=== PATIENT | female | born 1955 | race Caucasian/White ===

== ENCOUNTER → 2017-10-10 | Outpatient (CLI) | payer OTHER ==
[~2017-10-10] MED LIST: HYDROCHLOROTHIA25 MG PO; HYDROCODON-ACE1 EA11 PO; IOPAMIDOL 370 MG/ML 200 ML INFUS..BTL INJ ONE; KEFLEX500 MG PO; PHENERGAN25 MG/1 ML PO; PREVACID30 M1 PO; SODIUM CHLORIDE 0.9% 50ML 50 ML ONE
[2017-10-10 08:30] LABS: BLOOD UREA NITROGEN 15 mg/dL (7-26); BUN/CREATININE RATIO 18 (6-25); CREATININE, SERUM 0.85 mg/dL (0.57-1.11); EST GLOMERULAR FILTRATION RATE > 60 ML/MIN (60-)
--- NOTE | 2017-10-10 10:08 | Diagnostic Imaging Report ---
PROCEDURE: CT ABDOMEN AND PELVIS WITH CONTRAST TECHNIQUE: The abdomen and pelvis were scanned utilizing a multidetector helical scanner from the diaphragm to the lesser trochanter after the IV administration of 100 cc of Isovue 370 and the oral administration of water. Coronal and sagittal multiplanar reformations were obtained. COMPARISON: None. INDICATIONS: HERNIA FINDINGS: LOWER THORAX: 8 mm nodule in the left breast, partially visualized. Lung bases are unremarkable. No pleural or pericardial effusion.. HEPATOBILIARY: Hepatic parenchyma is diffusely hypoattenuating compatible with steatosis. No focal hepatic lesion or intrahepatic biliary ductal dilatation. Gallbladder has been removed. 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 PANCREAS: No focal masses or ductal dilatation. ADRENALS: No adrenal nodules. KIDNEYS/URETERS: No hydronephrosis, stones, or solid mass lesions. PELVIC ORGANS/BLADDER: The 2.5 cm partially exophytic subserosal fibroid projecting from the right side of the uterine body. No adnexal mass. Urinary bladder is poorly distended but otherwise unremarkable. PERITONEUM / RETROPERITONEUM: No free air or fluid. LYMPH NODES: No pelvic sidewall, retroperitoneal, or mesenteric lymphadenopathy. VESSELS: Atherosclerotic calcification of the abdominal aorta, branch vessels, and iliac arterial systems without aneurysmal dilatation. Portal vein and central superior mesenteric vein are patent. GI TRACT: The large bowel shows no evidence of distention or wall thickening. Scattered diverticula along the sigmoid colon without adjacent inflammation. The appendix is normal. Postsurgical changes of the gastroesophageal junction likely related to Wandy fundoplication. No small bowel dilatation to suggest obstruction. BONES AND SOFT TISSUES: Ventral hernia defect measures 2.9 cm transversely. The hernia sac contains omental fat with some inflammatory stranding. No bowel is noted within the hernia sac. No additional focal soft tissue abnormalities with the exception of postsurgical changes of the low anterior abdominal wall and a calcified injection granuloma in the subcutaneous tissues of the right gluteal region. No osseous destructive lesions. Well circumscribed, non-sclerotic appearing focus in the lumbar spine, likely a bone island. IMPRESSION: Midline supraumbilical ventral hernia measures 2.9 cm in transverse dimension, and contains mildly inflamed omental fat. 8mm partially visualized nodule in the left breast should be correlated mammographically. Hepatic steatosis. Atherosclerotic vascular disease. Dictated by: Dominguez Rush M.D. on 10/10/2017 at 10:16 Electronically approved by: Dominguez Rush M.D. on 10/10/2017 at 10:16
== END ==
LOC: CT 07:26
PROVIDERS: ATTEND Surgery
DX: R10.9 Unspecified abdominal pain (principal)
CPT/HCPCS: 36415; 74177; 82565; 84520; Q9967

== ENCOUNTER 2017-11-29 10:52 | Inpatient (IN) | payer SELFPAY ==
[2017-11-25 12:37] LABS: BASOPHILS # (AUTO) 0.1 (0.0-0.1); BASOPHILS % 0.6 % (0.0-1.0); EOSINOPHILS # (AUTO) 0.2 (0.0-0.4); EOSINOPHILS % 1.9 % (0.0-6.0); HEMATOCRIT 47.9 % (34.2-44.1); HEMOGLOBIN 15.9 g/dL (12.0-16.0); LYMPHOCYTES # (AUTO) 5.3 (1.0-3.2); LYMPHOCYTES % 44.8 % (18.0-39.1); MEAN CORPUSCULAR HEMOGLOBIN 28.9 pg (28-32); MEAN CORPUSCULAR HGB CONC 33.2 g/dL (31-35); MEAN CORPUSCULAR VOLUME 86.9 fL (81-99); MONOCYTES % 8.6 % (4.4-11.3); NEUTROPHILS # (AUTO) 5.1 (2.1-6.9); NEUTROPHILS % 43.4 % (38.7-80.0); PLATELET COUNT 385 x10e3/uL (140-360); RED BLOOD COUNT 5.51 x10e6/uL (3.6-5.1); RED CELL DISTRIBUTION WIDTH 14.5 % (11.7-14.4)
[2017-11-25 12:54] LABS: ANION GAP 17.4 mmol/L (8-16); BLOOD UREA NITROGEN 16 mg/dL (7-26); BUN/CREATININE RATIO 17 (6-25); CALCIUM 10.5 mg/dL (8.4-10.2); CARBON DIOXIDE 28 mmol/L (22-29); CHLORIDE 106 mmol/L (98-107); CREATININE, SERUM 0.93 mg/dL (0.57-1.11); EST GLOMERULAR FILTRATION RATE > 60 ML/MIN (60-); GLUCOSE 110 mg/dL (74-118); POTASSIUM 4.4 mmol/L (3.5-5.1); SODIUM 147 mmol/L (136-145)
--- NOTE | 2017-11-25 12:57 | Diagnostic Imaging Report ---
PROCEDURE: Frontal and lateral views of the chest. COMPARISON: 12/17/2014 INDICATIONS: PREOPERATIVE CHEST XRAY FOR HERNIA REPAIR SURGERY FINDINGS: Lines/tubes: None. Lungs: The lungs are well inflated and clear. There is no evidence of pneumonia or pulmonary edema. Pleura: There is no pleural effusion or pneumothorax. Heart and mediastinum: The heart and the mediastinum are normal. Bones: No acute bony abnormality. IMPRESSION: 1. No acute cardiopulmonary disease. Dictated by: Cleveland Lubin M.D. on 11/25/2017 at 12:56 Electronically approved by: Cleveland Lubin M.D. on 11/25/2017 at 12:56
[2017-11-25 13:31] LABS: LYMPHOCYTES % (MANUAL) 46 % (19-48); MONOCYTES % (MANUAL) 8 % (3.4-9.0); NEUTROPHILS % (MANUAL) 41 % (40-74)
[2017-11-25 13:34] LABS: HYPOCHROMASIA SLIGHT; PLATELET ESTIMATE ADEQUATE; PLATELET MORPHOLOGY COMMENT NORMAL
[2017-11-25 13:35] LABS: RBC MORPHOLOGY COMMENT ABNORMAL
[~2017-11-29] VITALS: Ht 160 cm; Wt 107.5 kg
[~2017-11-29 10:52] MED LIST changes: -IOPAMIDOL 370 MG/ML 200 ML INFUS..BTL INJ ONE; -SODIUM CHLORIDE 0.9% 50ML 50 ML ONE
--- OUTSIDE RECORDS SUMMARY | 2017-11-29 10:55 | XMS REPORT ---
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 Allergies, Adverse Reactions, Alerts This patient has no known allergies or adverse reactions. Medications This patient has no known medications. Results Test Description Test Time Test Comments Text Results Atomic Results Result Comments CHEST 2 VIEWS [place] [address] Patient Name: RORY KELLEY MR #: [id number] : 1955 Age/Sex: 62/F Req #: [id number] Adm Physician: Ordered by: SULEIMAN UP MD Report #: [id number] Location: OR Room/Bed: Procedure: [id number] DX/CHEST 2 VIEWS Exam Date: 11/25/17 Exam Time : 1220 REPORT STATUS: Signed PROCEDURE: Frontal and lateral views of the chest. COMPARISON: 12/17/2014 INDICATIONS: PREOPERATIVE CHEST XRAY FOR HERNIA REPAIR SURGERY FINDINGS: Lines/tubes: None. Lungs: The lungs are well inflated and clear. There is no evidence of pneumonia or pulmonary edema. Pleura: There is no pleural effusion or pneumothorax. Heart and mediastinum: The heart and the mediastinum are normal. Bones: No acute bony abnormality. IMPRESSION: 1. No acute cardiopulmonary disease. Dictated by: Denise Lubin M.D. on at 12:56 Electronically approved by: Denise Lubin M.D. on at 12:56 Dictated By: DENISE LUBIN MD [id number] Transcribed By: LUCY on 11/25/17 1256 COPY TO: SULEIMAN UP MD CT ABDOMEN/PELVIS W [place] [address] Patient Name: RORY KELLEY MR #: [id number] : 1955 Age/Sex: 62/F Req #: [id number] Adm Physician: Ordered by: SULEIMAN UP MD Report #: [id number] Location: CT Room/Bed: Procedure: [id number] CT/CT ABDOMEN/PELVIS W Exam Date: 10/10/17 Exam Time: 0830 REPORT STATUS: Signed PROCEDURE: CT ABDOMEN AND PELVIS WITH CONTRAST TECHNIQUE: The abdomen and pelvis were scanned utilizing a multidetector helical scanner from the diaphragm to the lesser trochanter after the IV administration of 100 cc of Isovue 370 and the oral administration of water. Coronal and sagittal multiplanar reformations were obtained. COMPARISON: None. INDICATIONS: HERNIA FINDINGS: LOWER THORAX: 8 mm nodule in the left breast, partially visualized. Lung bases are unremarkable. No pleural or pericardial effusion.. HEPATOBILIARY: Hepatic parenchyma is diffusely hypoattenuating compatible with steatosis. No focal hepatic lesion or intrahepatic biliary ductal dilatation. Gallbladder has been removed. 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 PANCREAS: No focal masses or ductal dilatation. ADRENALS: No adrenal nodules. KIDNEYS/URETERS: No hydronephrosis, stones, or solid mass lesions. PELVIC ORGANS/BLADDER: The 2.5 cm partially exophytic subserosal fibroid projecting from the right side of the uterine body. No adnexal mass. Urinary bladder is poorly distended but otherwise unremarkable. PERITONEUM / RETROPERITONEUM: No free air or fluid. LYMPH NODES: No pelvic sidewall, retroperitoneal, or mesenteric lymphadenopathy. VESSELS: Atherosclerotic calcification of the abdominal aorta, branch vessels, and iliac arterial systems without aneurysmal dilatation. Portal vein and central superior mesenteric vein are patent. GI TRACT: The large bowel shows no evidence of distention or wall thickening. Scattered diverticula along the sigmoid colon without adjacent inflammation. The appendix is normal. Postsurgical changes of the gastroesophageal junction likely related to Wandy fundoplication. No small bowel dilatation to suggest obstruction. BONES AND SOFT TISSUES: Ventral hernia defect measures 2.9 cm transversely. The hernia sac contains omental fat with some inflammatory stranding. No bowel is noted within the hernia sac. No additional focal soft tissue abnormalities with the exception of postsurgical changes of the low anterior abdominal wall and a calcified injection granuloma in the subcutaneous tissues of the right gluteal region. No osseous destructive lesions. Well circumscribed, non-sclerotic appearing focus in the lumbar spine, likely a bone island. IMPRESSION: Midline supraumbilical ventral hernia measures 2.9 cm in transverse dimension, and contains mildly inflamed omental fat. 8mm partially visualized nodule in the left breast should be correlated mammographically. Hepatic steatosis. Atherosclerotic vascular disease. Dictated by: Romeo Nuno M.D. on 2017 at 10:16 Electronically approved by: Romeo Nuno M.D. on 10/10/2017 at 10:16 Dictated By: ROMEO NUNO MD [id number] Transcribed By: LUCY on 10/10/17 1016 COPY TO: SULEIMAN UP MD
[2017-11-29] MEDS ORDERED: SEVOFLURANE INHAL SOLN 250 ML PEN BTL ONE (14:55)
[2017-11-29] MEDS ORDERED: PROPOFOL IV EMULSION 10 MG/ML 20 ML VIAL ONE (14:55)
[2017-11-29] MEDS ORDERED: LIDOCAINE HCL 2% LOCAL INJ 5 ML SDV VIAL INJ ONE (14:55)
[2017-11-29] MEDS ORDERED: DEXAMETHASONE SOD PHOS INJ 4 MG/ML VIAL ONE (14:55)
[2017-11-29] MEDS ORDERED: ACETAMINOPHEN 1000 MG/100 ML IV ONE (14:55)
[2017-11-29] MEDS ORDERED: ROCURONIUM BROMIDE 10 MG/ML 5ML VIAL ONE (14:55)
[2017-11-29] MEDS ORDERED: ONDANSETRON HCL INJ 2 MG/ML VIAL ONE (14:55)
[2017-11-29] MEDS ORDERED: KETOROLAC TROMETHAMINE 30 MG/ML VIAL ONE (14:55)
[2017-11-29] MEDS ORDERED: FENTANYL CITRATE/PF 100MCG/2 ML INJ ONE (16:26)
[2017-11-29] MEDS ORDERED: MIDAZOLAM HCL 2 MG/2 ML VIAL ONE (16:26)
[2017-11-29] MEDS ORDERED: BUPIVACAINE 0.25% 30ML SDV INJ ONE (16:45)
[2017-11-29] MEDS ORDERED: CEFAZOLIN SOD 2 GM/D5W 50ML 50 ML IV ONE (16:53)
[2017-11-29] MEDS ORDERED: HYDROMORPHONE 1MG/1ML INJ IV PRN (18:45)
[2017-11-29] MEDS: PANTOPRAZOLE 40 MG 10ML VIAL IV SCH (18:45)
[2017-11-29] MEDS ORDERED: ACETAMINOPHEN 1000 MG/100 ML IV PRN (18:45)
[2017-11-29] MEDS ORDERED: KETOROLAC TROMETHAMINE 30 MG/ML VIAL IV PRN (18:45)
[2017-11-29] MEDS ORDERED: HYDROMORPHONE 1MG/1ML INJ ONE (18:56)
--- NOTE | 2017-11-29 20:27 | Operative Report ---
DATE OF PROCEDURE: November 29, 2017 PREOPERATIVE DIAGNOSIS: Ventral hernia. POSTOPERATIVE DIAGNOSIS: Ventral hernia. OPERATION PERFORMED: Repair of ventral hernia with mesh. ANESTHESIA: General. COMPLICATIONS: None. ESTIMATED BLOOD LOSS: Minimal. DESCRIPTION OF PROCEDURE: With the patient lying in bed in the supine position under good general endotracheal anesthesia, the abdomen was prepped with Betadine solution and draped in the usual manner. A midline incision was made. Was carried down through the subcutaneous tissue and immediately in the mid upper abdomen the hernia defect was encountered, and this was dissected circumferentially with normal fascia all the way around. The previously placed mesh was well incorporated and there was an obvious defect in the center of the mesh presenting a herniation. The fascia was dissected circumferentially around the hernia sac and the hernia sac was then opened. The contents were then slowly and carefully from the hernia sac. This was mostly just omentum and they were reduced back to the intra-abdominal cavity. Some adhesions were taken down in the intra-abdominal cavity and we were able to free up all of the undersurface of the fascia around the area of the defect. A large V patch was then placed intra-abdominally and anchored at each side with different sutures of 0 Ethibond anchoring all the corners of the mesh. After this was done, the defect was then closed transversely using interrupted sutures of 0 Ethibond anchoring the mesh on the way out. This gave us a satisfactory repair without any tension. The whole area was then thoroughly irrigated. Perfect hemostasis was ascertained. The defect was then further oversewn with a running suture of #1 Vicryl. The fascia was then infiltrated with 1/4 percent Marcaine. Subcutaneous tissue was approximated with 3-0 Vicryl and the skin was closed with clips. Dressing was applied. The sponge, lap and needle count was correct. The patient tolerated the procedure well and returned to the recovery room in stable condition. Job#: [id number]
[2017-11-29] MEDS: DEXTROSE 5%/LACTATED RINGERS 1,000 ML IV SCH (20:30)
[2017-11-29 21:00] VITALS: BP 137/67
[2017-11-29 21:03] VITALS: BP 137/67
[2017-11-29] MEDS ORDERED: CEFAZOLIN SOD 1 GM/NS 50ML 50 ML IV SCH (22:00)
[2017-11-30 00:49] VITALS: BP 116/61
[2017-11-30] MEDS: CEFAZOLIN SOD 1 GM VIAL IV SCH ×2 (01:15→10:33)
[2017-11-30 04:00] VITALS: BP 115/56
[2017-11-30] MEDS: DEXTROSE 5%/LACTATED RINGERS 1,000 ML IV SCH ×3 (04:34→21:46)
[2017-11-30 07:31] LABS: BASOPHILS % 0.1 % (0.0-1.0); HEMATOCRIT 39.7 % (34.2-44.1); HEMOGLOBIN 13.1 g/dL (12.0-16.0); LYMPHOCYTES # (AUTO) 3.1 (1.0-3.2); LYMPHOCYTES % 22.6 % (18.0-39.1); MEAN CORPUSCULAR HEMOGLOBIN 29.2 pg (28-32); MEAN CORPUSCULAR VOLUME 88.6 fL (81-99); MONOCYTES % 7.5 % (4.4-11.3); NEUTROPHILS # (AUTO) 9.5 (2.1-6.9); NEUTROPHILS % 69.5 % (38.7-80.0); PLATELET COUNT 353 x10e3/uL (140-360); RED BLOOD COUNT 4.48 x10e6/uL (3.6-5.1); RED CELL DISTRIBUTION WIDTH 14.8 % (11.7-14.4)
[2017-11-30 08:08] LABS: ANION GAP 11.7 mmol/L (8-16); BLOOD UREA NITROGEN 14 mg/dL (7-26); BUN/CREATININE RATIO 18 (6-25); CALCIUM 8.7 mg/dL (8.4-10.2); CARBON DIOXIDE 27 mmol/L (22-29); CHLORIDE 106 mmol/L (98-107); EST GLOMERULAR FILTRATION RATE > 60 ML/MIN (60-); GLUCOSE 121 mg/dL (74-118); POTASSIUM 3.7 mmol/L (3.5-5.1); SODIUM 141 mmol/L (136-145)
[2017-11-30 08:23] VITALS: BP 115/66
[2017-11-30] MEDS: HYDROCHLOROTHIAZIDE 25 MG TAB PO SCH (09:00)
[2017-11-30] MEDS ORDERED: ONDANSETRON HCL INJ 2 MG/ML VIAL IV PRN (11:15)
[2017-11-30 12:24] VITALS: BP 133/64
[2017-11-30 16:18] VITALS: BP 124/62
[2017-11-30] MEDS: HYDROCODONE/APAP 7.5MG-325MG 1 EA TAB PO PRN (16:54)
[2017-11-30] MEDS: PANTOPRAZOLE 40 MG 10ML VIAL IV SCH (19:12)
[2017-11-30 19:56] VITALS: BP 137/65
[2017-12-01] MEDS: ONDANSETRON HCL INJ 2 MG/ML VIAL IV PRN ×3 (01:11→09:50)
[2017-12-01] MEDS: HYDROCODONE/APAP 7.5MG-325MG 1 EA TAB PO PRN ×2 (01:12→05:25)
[2017-12-01 02:01] VITALS: BP 145/68
[2017-12-01 02:33] VITALS: BP 145/68
[2017-12-01 08:00] VITALS: BP 123/60
[2017-12-01] MEDS: HYDROCHLOROTHIAZIDE 25 MG TAB PO SCH (09:00)
[2017-12-01 12:00] VITALS: BP 131/59
== END 2017-12-01 13:06 | disposition home or self-care (01) | DRG 355 ==
LOC: OR 10:52 → IMCU 20:00
PROVIDERS: ADMIT Surgery; ATTEND Surgery
PROC: 0WUF0JZ Supplement Abdominal Wall with Synthetic Substitute, Open Approach (ICD-10-PCS; principal; 2017-11-29 16:46)
DX: K43.0 Incisional hernia with obstruction, without gangrene (principal); I10 Essential (primary) hypertension
CPT/HCPCS: 36415; 71046; 80048; 85025; 93005; J0690; J1100; J1170; J1885; J2001; J2250; J2405; J7120

== ENCOUNTER 2022-08-11 10:45 | Inpatient (IN) | payer MEDICARE, OTHER ==
[~2022-08-11] VITALS: Ht 160 cm; Wt 107.5 kg
[2022-08-11] MEDS ORDERED: ASPIRIN 81 MG CHEW TAB PO STA (11:26)
[2022-08-11 11:30] LABS: BASOPHILS # (AUTO) 0.1 (0.0-0.1); BASOPHILS % 0.7 % (0.0-1.0); EOSINOPHILS # (AUTO) 0.2 (0.0-0.4); EOSINOPHILS % 2.5 % (0.0-6.0); HEMATOCRIT 45.9 % (34.2-44.1); HEMOGLOBIN 14.7 g/dL (12.0-16.0); LYMPHOCYTES # (AUTO) 4.5 (1.0-3.2); MEAN CORPUSCULAR HEMOGLOBIN 29.4 pg (28-32); MEAN CORPUSCULAR VOLUME 91.8 fL (81-99); MONOCYTES # (AUTO) 0.8 (0.2-0.8); MONOCYTES % 8.6 % (4.4-11.3); NEUTROPHILS # (AUTO) 4.1 (2.1-6.9); NEUTROPHILS % 41.9 % (38.7-80.0); PLATELET COUNT 425 x10e3/uL (140-360); RED CELL DISTRIBUTION WIDTH 14.1 % (11.7-14.4)
[2022-08-11 11:58] LABS: ALANINE AMINOTRANSFERASE 15 IU/L (0-55); ALBUMIN 4.1 g/dL (3.5-5.0); ALBUMIN/GLOBULIN RATIO 1.2 (0.8-2.0); ALKALINE PHOSPHATASE 56 IU/L (40-150); ANION GAP 16.1 mmol/L (8-16); BLOOD UREA NITROGEN 18 mg/dL (7-26); BUN/CREATININE RATIO 21 (6-25); CALCIUM 11.1 mg/dL (8.4-10.2); CARBON DIOXIDE 28 mmol/L (22-29); CHLORIDE 99 mmol/L (98-107); CREATINE KINASE 54 IU/L (29-168); CREATININE, SERUM 0.84 mg/dL (0.57-1.11); GLUCOSE 107 mg/dL (74-118); POTASSIUM 4.1 mmol/L (3.5-5.1); SODIUM 139 mmol/L (136-145)
[2022-08-11] MEDS ORDERED: Morphine 2mg Syringe 2 MG/ML SYR IV PRN (15:00)
[2022-08-11] MEDS ORDERED: ONDANSETRON HCL INJ 2MG/ML 2ML 2 MG/ML VIAL IV PRN (15:00)
[2022-08-11] MEDS: FAMOTIDINE 20 MG/2 ML VIAL IV SCH (17:03)
[2022-08-11 17:05] VITALS: BP 134/76
[2022-08-11 17:32] VITALS: BP 134/76
[2022-08-11] MEDS ORDERED: LISINOPRIL10 MG PO (17:46)
[2022-08-11 19:38] LABS: INR 0.94; PROTHROMBIN TIME 13.4 seconds (11.9-14.5)
[2022-08-11 19:39] LABS: PARTIAL THROMBOPLASTIN TIME 27.9 seconds (23.8-35.5)
[2022-08-11 19:45] LABS: CREATINE KINASE 46 IU/L (29-168)
[2022-08-11 20:00] VITALS: BP 143/65
[2022-08-11 21:00] VITALS: BP 130/77
[2022-08-12] VITALS: BP 113/62
[2022-08-12 00:59] LABS: CREATINE KINASE 42 IU/L (29-168)
[2022-08-12] MEDS: FAMOTIDINE 20 MG/2 ML VIAL IV SCH (03:11)
[2022-08-12 04:00] VITALS: BP 124/68
[2022-08-12 07:16] LABS: BASOPHILS # (AUTO) 0.1 (0.0-0.1); BASOPHILS % 0.8 % (0.0-1.0); EOSINOPHILS # (AUTO) 0.3 (0.0-0.4); EOSINOPHILS % 3.1 % (0.0-6.0); HEMATOCRIT 40.1 % (34.2-44.1); HEMOGLOBIN 13.5 g/dL (12.0-16.0); LYMPHOCYTES # (AUTO) 3.8 (1.0-3.2); LYMPHOCYTES % 43.9 % (18.0-39.1); MEAN CORPUSCULAR HEMOGLOBIN 29.2 pg (28-32); MEAN CORPUSCULAR HGB CONC 33.7 g/dL (31-35); MEAN CORPUSCULAR VOLUME 86.8 fL (81-99); MONOCYTES # (AUTO) 0.8 (0.2-0.8); NEUTROPHILS # (AUTO) 3.7 (2.1-6.9); PLATELET COUNT 390 x10e3/uL (140-360); RED BLOOD COUNT 4.62 x10e6/uL (3.6-5.1); RED CELL DISTRIBUTION WIDTH 14.2 % (11.7-14.4)
[2022-08-12 07:56] LABS: ALBUMIN 3.5 g/dL (3.5-5.0); ALBUMIN/GLOBULIN RATIO 1.2 (0.8-2.0); ANION GAP 13.9 mmol/L (8-16); CALCIUM 9.7 mg/dL (8.4-10.2); CHOL/HDL RATIO 3.5 (3.0-3.6); CREATININE, SERUM 0.78 mg/dL (0.57-1.11); POTASSIUM 3.9 mmol/L (3.5-5.1)
[2022-08-12 08:03] LABS: CREATINE KINASE MB 0.5 ng/mL (0-5.0)
[2022-08-12 08:07] VITALS: BP 117/73
[2022-08-12 08:32] VITALS: BP 117/73
[2022-08-12] MEDS ORDERED: ASPIRIN 81 MG ENTERIC COATED PO SCH (09:00)
== END 2022-08-12 12:25 | disposition home or self-care (01) | DRG 313 ==
LOC: ER 11:07 → ERHOLD 15:00 → MED/SURG2 15:46
PROVIDERS: ADMIT Internal Medicine; ATTEND Internal Medicine
DX: R07.89 Other chest pain (principal); K21.9 Gastro-esophageal reflux disease without esophagitis; Z20.822 Contact with and (suspected) exposure to COVID-19
CPT/HCPCS: 0223U; 36415; 71045; 80053; 80061; 82550; 82553; 83735; 83880; 84484; 85025; 85610; 85730; 93005; 94799; 99284